=== PATIENT | female | born 1960 | race African-American/Black ===

== ENCOUNTER 2018-02-12 11:27 | Emergency (ER) | payer OTHER ==
--- NOTE | 2018-02-12 13:06 | UC ---
Skin Complaint HPI - HPI Summary HPI Summary: PATIENT MOVED HERE TO [place] ABOUT 1 MONTH AGO AND HAS BEEN STAYING AT AN AIR [facility]NB WAITING FOR HER PLACE TO BE READY FOR MOVE IN. SHE HAS A HISTORY OF SENSITIVE SKIN AND SINCE STAYING AT THE AIR BNB HAS DEVELOPED A RED, RAISED, ITCHY RASH OVER HER WHOLE BODY. NO FEVER. NO SHORTNESS OF BREATH/DIFFICULTY BREATHING. NO TONGUE/LIP SWELLING. HAS BEEN TAKING OTC ANTIHISTAMINES WITHOUT MUCH RELIEF. - History of Current Complaint Chief Complaint: UCAllergicReaction Time Seen by Provider: 02/12/18 11:47 Stated Complaint: RASH Hx Obtained From: Patient Hx Last Menstrual Period: 03/2016 Onset/Duration: Gradual Onset, Lasting Days, Still Present Skin Exposure Onset/Duration: Weeks Ago Timing: Constant Onset Severity: Moderate Current Severity: Moderate Pain Intensity: 0 Pain Scale Used: 0-10 Numeric Location: Diffuse Character: Pruritus, Hives, Redness, Raised Aggravating Factor(s): Touch Alleviating Factor(s): Nothing Associated Signs & Symptoms: Positive: Rash. Negative: Nausea, Difficulty Breathing, Fever, Throat Tightening, Syncope, Drainage - Allergy/Home Medications Allergies/Adverse Reactions: Allergies Allergy/AdvReac Type Severity Reaction Status Date / Time shellfish derived Allergy Severe Shortness Verified 02/12/18 11:46 of Breath nuts Allergy Severe Shortness Uncoded 02/12/18 11:46 of Breath Home Medications: Home Medications Loratadine [Claritin] 1 tab PO DAILY 02/12/18 [History Confirmed 02/12/18] diPHENhydraMINE PO* [Benadryl PO 25 MG TAB*] 1 tab PO BEDTIME 02/12/18 [History Confirmed 02/12/18] Review of Systems Constitutional: Negative Skin: Rash Respiratory: Negative Cardiovascular: Negative Gastrointestinal: Negative All Other Systems Reviewed And Are Negative: Yes PMH/Surg Hx/FS Hx/Imm Hx Cardiovascular History: Hypertension - Surgical History Surgical History: Yes Surgery Procedure, Year, and Place: gallbladder surgery 10/05 - Family History Known Family History: Positive: Hypertension - Social History Alcohol Use: Daily Substance Use Type: None Smoking Status (MU): Former Smoker Physical Exam Triage Information Reviewed: Yes Appearance: Well-Appearing, No Pain Distress, Well-Nourished Vital Signs: Initial Vital Signs Temp 97.4 F 02/12/18 11:37 Pulse 72 02/12/18 11:37 Resp 18 02/12/18 11:37 BP 159/89 02/12/18 11:37 Pulse Ox 97 02/12/18 11:37 Vital Signs Reviewed: Yes Eyes: Positive: Conjunctiva Clear ENT: Positive: Hearing grossly normal Neck: Positive: Supple Respiratory: Positive: No respiratory distress, No accessory muscle use Cardiovascular: Positive: Pulses Normal Abdomen Description: Positive: Soft Musculoskeletal: Positive: No Edema Neurological: Positive: Alert Psychological: Positive: Age Appropriate Behavior Skin: Positive: Other - RAISED WHEALS DIFFUSELY OVER TRUNK AND EXTREMITIES. Course/Dx - Diagnoses Provider Diagnoses: HIVES Discharge - Sign-Out/Discharge Documenting (check all that apply): Patient Departure - Discharge Plan Condition: Stable Disposition: HOME Prescriptions: Clobetasol 0.05% OINT* 1 applic TOPICAL BID PRN #1 tube PRN Reason: Itching hydroCHLOROthiazide [Hydrochlorothiazide] 12.5 mg PO DAILY #30 capsule predniSONE TAB* [Deltasone TAB*] 50 mg PO DAILY #5 tab Patient Education Materials: Urticaria (ED) Referrals: No Primary Care Phys,NOPCP [Primary Care Provider] - Additional Instructions: USE DAILY HYPOALLERGENIC MOISTURIZING LOTION AVOID HEAT AND HOT WATER TAKE OTC ANTIHISTAMINE DAILY (CLARITIN (LORATADINE), ZYRTEC (CETIRIZINE) OR KASSANDRA (FEXOFENADINE) IN THE MORNING, 25-50MG BENADRYL AT NIGHT) DO NOT SCRATCH KEEP COOL, CLEAN AND DRY USE TOPICAL STEROID SPARINGLY 2 TIMES DAILY ON ITCHY SPOTS. KEEP AWAY FROM MUCOUS MEMBRANES. TAKE PREDNISONE DAILY. IF YOU HAVE RECURRENT SYMPTOMS CONSIDER EVAL BY AN DIAMOND GRADER. [facility] Address: [address], [place] [address] [facility] [address] [place] [address]., [address] [place], [place] [address] YOUR BP MEDS WERE REFILLED. YOUR BLOOD PRESSURE WAS ELEVATED TODAY (159/89). THIS MAY BE DUE TO YOUR ACUTE CONDITION. MONITOR AND FOLLOW-UP WITH A PCP WITHIN 4 WEEKS IF IT HAS NOT RETURNED TO NORMAL. CALL THE NUMBER BELOW FOR ASSISTANCE IN ESTABLISHING WITH A PCP An additional resource available to assist in finding the appropriate physician for your health care needs is the [facility] ([facility]). You may contact them by calling [phone]. - Billing Disposition and Condition Condition: STABLE Disposition: Home
== END 2018-02-12 12:12 | disposition home or self-care (01) ==
LOC: UCEAST 11:27
DX: L50.9 Urticaria, unspecified (principal); I10 Essential (primary) hypertension; Z91.013 Allergy to seafood; Z91.018 Allergy to other foods; Z87.891 Personal history of nicotine dependence
CPT/HCPCS: 99202; G0463

== ENCOUNTER 2019-02-26 04:20 | Emergency (ER) | payer OTHER ==
[2019-02-26] MEDS ORDERED: Aspirin 81 mg CHEW TAB* 81 MG TAB.CHEW PO ONE (05:01)
--- NOTE | 2019-02-26 05:01 | ED ---
Upper Extremity Pain - HPI Summary HPI Summary: A 58 y/o female presents to [facility] with a chief complaint of left arm tightness since 02:30. She says that this radiated up to her shoulder and jaw. She took a baby aspirin at 03:30. She denies any SOB, diaphoresis, nausea, fevers, chills or CP but reports indigestion. She takes Hydrochlorothiazide for HTN. She denies smoking or HLD. Her mother reportedly had CHF at 50 y/o from sarcoidosis. - History of Current Complaint Chief Complaint: EDChestPainROMI Stated Complaint: L SHOULDER PAIN PER PT Time Seen by Provider: 02/26/19 04:52 Hx Obtained From: Patient Hx Last Menstrual Period: 03/2016 Mechanism Of Injury: Unknown Onset/Duration: Started Hours Ago, Still Present Timing: Constant, Lasting Hours Severity Initially: Moderate Severity Currently: Moderate Pain Location: Arm Character: Unable to Describe - tightness Aggravating Factor(s): Nothing Alleviating Factor(s): Nothing Associated Signs & Symptoms: Negative: Fever, Chest Pain, SOB, Nausea - Allergies/Home Medications Allergies/Adverse Reactions: Allergies Allergy/AdvReac Type Severity Reaction Status Date / Time shellfish derived Allergy Severe Shortness Verified 02/26/19 04:54 of Breath nuts Allergy Severe Shortness Uncoded 02/26/19 04:54 of Breath PMH/Surg Hx/FS Hx/Imm Hx Endocrine/Hematology History: Denies: Hx Thyroid Disease Cardiovascular History: Reports: Hx Hypertension Respiratory History: Denies: Hx Asthma - Cancer History Hx Chemotherapy: No Hx Radiation Therapy: No - Surgical History Surgery Procedure, Year, and Place: gallbladder surgery 10/05 Infectious Disease History: No Infectious Disease History: Denies: Traveled Outside the [place] in Last 30 Days - Family History Known Family History: Positive: Hypertension - Social History Alcohol Use: Daily Alcohol Amount: wine Substance Use Type: Reports: None Smoking Status (MU): Former Smoker Review of Systems Negative: Fever, Chills, Skin Diaphoresis Negative: Chest Pain Negative: Shortness Of Breath Positive: Other - indigestion. Negative: Nausea Positive: Myalgia - left arm tightness All Other Systems Reviewed And Are Negative: Yes Physical Exam - Summary Physical Exam Summary: Constitutional: Well-developed, Well-nourished, Alert. (-) Distressed Skin: Warm, Dry HENT: Normocephalic; Atraumatic Eyes: Conjunctiva normal Neck: Musculoskeletal ROM normal neck. (-) JVD, (-) Stridor, (-) Tracheal deviation Cardio: Rhythm regular, rate normal, Heart sounds normal; Intact distal pulses; The pedal pulses are 2+ and symmetric. Radial pulses are 2+ and symmetric. (-) Murmur Pulmonary/Chest wall: Effort normal. (-) Respiratory distress, (-) Wheezes, (-) Rales Abd: Soft, (-) tenderness, (-) Distension, (-) Guarding, (-) Rebound Musculoskeletal: (-) Edema Lymph: (-) Cervical adenopathy Neuro: Alert, Oriented x3 Psych: Mood and affect Normal Triage Information Reviewed: Yes Vital Signs On Initial Exam: Initial Vitals Temp Pulse Resp BP Pulse Ox 97.8 F 106 20 168/80 98 02/26/19 04:25 02/26/19 04:25 02/26/19 04:25 02/26/19 04:25 02/26/19 04:25 Vital Signs Reviewed: Yes Diagnostics - Vital Signs Vital Signs Temp Pulse Resp BP Pulse Ox 02/26/19 04:25 97.8 F 106 20 168/80 98 - Laboratory Result Diagrams: 02/26/19 04:45 02/26/19 04:43 Lab Statement: Any lab studies that have been ordered have been reviewed, and results considered in the medical decision making process. - Radiology CXR Radiology Interpretation Completed By: ED Physician Summary of Radiographic Findings: No acute disease. Pending official imaging report. - EKG 04:23 Cardiac Rate: Tachycardia - 113 bpm EKG Rhythm: Sinus Tachycardia Summary of EKG Findings: EKG at 04:23 showed sinus tachycardia at 113 bpm, normal OK, normal QRS, normal QTc, normal ST, T wave flattening in aVF, nonspecific EKG. Course/Dx - Course Course Of Treatment: A 58 y/o female presents to [facility] with a chief complaint of left arm tightness since 02:30. She says that this radiated up to her shoulder and jaw. The physical exam was unremarkable. EKG at 04:23 showed sinus tachycardia at 113 bpm, normal OK, normal QRS, normal QTc, normal ST, T wave flattening in aVF, nonspecific EKG. CXR showed No acute disease. Blood work and chemistries obtained and are WNL. In the ED course the patient was given Aspirin PO and Potassium Chloride PO. Discussed case with hospitalist, Dr. Feliciano, who accepted the patient for admission. The patient is agreeable with this plan. - Diagnoses Provider Diagnoses: Chest pain - Physician Notifications Discussed Care of Patient With: Arlene Feliciano Time Discussed With Above Provider: 07:11 Instructed by Provider To: Admit As Inpatient Discharge - Sign-Out/Discharge Documenting (check all that apply): Patient Departure - admit Patient Received Moderate/Deep Sedation with Procedure: No - Discharge Plan Condition: Fair Disposition: ADMITTED TO [facility] Referrals: Dawna Medina MD [Primary Care Provider] - - Billing Disposition and Condition Condition: FAIR Disposition: Admitted to [facility] - Attestation Statements Document Initiated by Yara: Yes Documenting Scribe: Magno Grajeda Provider For Whom Yara is Documenting (Include Credential): Renuka Christianson MD Scribe Attestation: IMagno, scribed for Renuka Beverly MD on 02/26/19 at 0739. Scribe Documentation Reviewed: Yes Provider Attestation: The documentation as recorded by the Magno [email or web address] accurately reflects the service I personally performed and the decisions made by me, Renuka Beverly MD Status of Scribe Document: Viewed
[2019-02-26 05:07] LABS: ABS Basophils 0.1 10^3/ul (0-0.2); ABS Eosinophils 0.3 10^3/ul (0-0.6); ABS Lymphocytes 1.3 10^3/ul (1.0-4.8); ABS Monocytes 0.4 10^3/ul (0-0.8); ABS Neutrophils 3.2 10^3/ul (1.5-7.7); Eosinophil % 5.6 %; Hematocrit 41 % (35-47); Hemoglobin 13.4 g/dL (12.0-16.0); Lymphocyte % 24.1 %; Mean Corpuscular HGB Conc 33 g/dL (31-36); Mean Corpuscular Hemoglobin 30 pg (27-31); Mean Corpuscular Volume 90 fL (80-97); Mean Platelet Volume 10.2 fL (7.4-10.4); Platelet Count 186 10^3/uL (150-450); Red Blood Count 4.49 10^6 /uL (3.70-4.87); Red Cell Distribution Width 13 % (10-15); White Blood Count 5.3 10^3/uL (3.5-10.8)
[2019-02-26 05:14] LABS: INR 1.06 (0.82-1.09)
[2019-02-26 05:26] LABS: Albumin 4.6 g/dL (3.2-5.2); Albumin/Globulin Ratio 1.5 (1-3); BUN/Creatinine Ratio 18.8 (8-20); Calcium 9.5 mg/dL (8.6-10.3); EGFR African American 60.5 (>60); Globulin 3.1 g/dL (2-4); Potassium 3.4 mmol/L (3.5-5.0); Total Bilirubin 0.4 mg/dL (0.2-1.0); Total Protein 7.7 g/dL (6.4-8.9)
[2019-02-26 05:28] LABS: Troponin I 0.01 ng/mL (<0.04)
[2019-02-26] MEDS ORDERED: Potassium Chlor TAB* 20 MEQ TAB.ER PO ONE (06:51)
[2019-02-26 07:17] LABS: HIV 4th Generation Negative (Negative)
[2019-02-26 16:26] LABS: HDL Cholesterol 51.6 mg/dL
--- NOTE | 2019-02-26 17:23 | CONS ---
CC: Dr. Dawna Medina* CONSULTATION REPORT: DATE OF CONSULT: 02/26/19 PRIMARY CARE PHYSICIAN: Dr. Dawna Medina. CHIEF COMPLAINT: Acute onset of left arm and jaw tightness. HISTORY OF PRESENT ILLNESS: Ms. Beasley is a very pleasant 58-year-old woman with hypertension, who was awoken from sleep this morning at 2:30 with sudden onset of left arm and jaw tightness. She does deny chest pain. She states the tightness was associated with a tiredness but no diaphoresis, shortness of breath, heartburn, abdominal pain, or other symptoms. She reports that nothing made it better or worse. It was unchanged with exertion, positional changes, or deep breath. She does report a stressful job but no recent significant increase in stress. She moved to the [facility] approximately 1 year ago and has no prior cardiac history. PAST MEDICAL HISTORY: Hypertension. HOME MEDICATION: Hydrochlorothiazide. ALLERGIES: Shellfish causes vomiting and nuts cause hives. FAMILY HISTORY: The patient's mother from CHF as complication of sarcoidosis. The patient's father from an DC at age of 81. 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. She lives with her partner Jeannette. She quit smoking in 2004 and has a prior [id number] history. She drinks approximately 2 glasses of wine daily. She denies other drug use. REVIEW OF SYSTEMS: A complete 10-point review of systems was performed and pertinent positives and negatives are listed in this HPI. PHYSICAL EXAM: Afebrile, heart rate 70s, blood pressure 114/77, respiratory rate 18, oxygen saturation 99% on room air. General: She is a pleasant, alert woman in no acute distress, who is interactive and appropriate. Neck: No JVD. Supple. HEENT: Moist mucous membranes. OP clear. Lungs: Clear to auscultation bilaterally. Heart: Regular rate and rhythm. No murmurs, gallops , or rubs. Abdomen: Soft, nontender, nondistended. Extremities: Warm and well perfused. No evidence of edema. Neuro: A and O x3. No focal deficits. DIAGNOSTIC STUDIES/LAB DATA: CBC unremarkable. Potassium 3.4. Creatinine is 1.12 which is mildly elevated with an unknown baseline. Troponins negative x3. HIV negative. EKG showed sinus tachycardia on presentation with rate 113, no significant ST or T- wave changes. Chest x-ray was without evidence for active cardiopulmonary disease. Exercise stress test was unremarkable. ASSESSMENT AND PLAN: Ms. Beasley is a 58-year-old woman with a history of hypertension, who was presenting with acute onset of left arm/jaw pain that resolved after aspirin. Her cardiac enzymes, EKG, and stress test were unremarkable for cause of her presenting symptoms of left arm and jaw tightness. At this time, cause of the patient's symptoms is unclear. It is possible that she did have an episode of Prinzmetal angina as she fits the demographic and her symptoms did start in the middle of the night. At this time , the patient does not need to be admitted to the hospital and should follow up with her primary care physician, who can consider a cardiology referral. It was also noted that the patient could be switched from hydrochlorothiazide to a calcium channel lucie, which would treat the patient if she did indeed have vasospastic angina; however, this diagnosis was not confirmed during this ER visit. Generally, vasospastic angina would be treated with a calcium channel lucie such as diltiazem at a dose of 240 to 360 mg per day, so this could be considered by her primary care physician. The patient was also educated on limiting alcohol intake and advised to continue to abstain from smoking cigarettes. Her A1c and lipids were pending at the time of discharge. She was educated to follow up with her PCP for her lipid results. If her cholesterol is elevated, she may qualify for aspirin and statin therapy if her atherosclerotic cardiovascular disease risk is above 10%. This was explained to the patient as well. She was also extensively educated on return precautions which include, but are not limited to, recurrence of chest pain associated with diaphoresis or shortness of breath. Thank you for this interesting consult. TIME SPENT: Approximately 60 minutes was spent on the consultation of this patient, more than half of which was spent at bedside for interview and exam. [id number]/[facility] #: [id number] YANG
--- NOTE | 2019-02-26 18:18 | ED ---
Progress - Progress Note Progress Note: This is a patient who presented with left shoulder pain, arm pain, seen by the hospitalist service. The hospitalist does not have access to the discharge module, their intentions for the patient to be discharged after they evaluated the patient had a stress test done in the emergency department. This note is foradministrative purposes only to fulfill the discharge function requested by the hospitalist. See Dr. Arlene Cantu dictated note. Per Dr. Feliciano, statin decision to be deferred to PCP, patient aware. Patient will begin daily baby aspirin. Course/Dx - Course Course Of Treatment: A 58 y/o female presents to [facility] with a chief complaint of left arm tightness since 02:30. She says that this radiated up to her shoulder and jaw. The physical exam was unremarkable. EKG at 04:23 showed sinus tachycardia at 113 bpm, normal OR, normal QRS, normal QTc, normal ST, T wave flattening in aVF, nonspecific EKG. CXR showed No acute disease. Blood work and chemistries obtained and are WNL. In the ED course the patient was given Aspirin PO and Potassium Chloride PO. Discussed case with hospitalist, Dr. Feliciano, who accepted the patient for admission. The patient is agreeable with this plan. - Diagnoses Provider Diagnoses: Chest pain - Provider Notifications Time Discussed With Above Provider: 07:11 Instructed by Provider To: Admit As Inpatient Discharge - Sign-Out/Discharge Documenting (check all that apply): Patient Departure Patient Received Moderate/Deep Sedation with Procedure: No - Discharge Plan Condition: Good Disposition: HOME Patient Education Materials: Chest Pain (ED) Referrals: Dawna Medina MD [Primary Care Provider] - [facility] [Outside] - 1 Day Additional Instructions: Return to the emergency department for any changing or worsening symptoms. If the discomfort returns, please return to the emergency Department immediately. Call Clinic in the event that Dr. medina is unable you to see within the next 1- 2 days. They will be able to schedule you within 24-48 hours for an appointment. Per your discussion with Dr. Feliciano, please start taking a baby aspirin daily. - Billing Disposition and Condition Condition: GOOD Disposition: Home
[2019-02-26 18:40] VITALS: BP 129/74
== END 2019-02-26 18:35 | disposition home or self-care (01) ==
LOC: ED 04:20
DX: R07.9 Chest pain, unspecified (principal); I10 Essential (primary) hypertension; Z79.899 Other long term (current) drug therapy; Z87.891 Personal history of nicotine dependence
CPT/HCPCS: 36415; 71045; 80053; 80061; 83036; 83605; 83880; 84484; 85025; 85610; 87389; 93005; 93017; 99284; A9270-GY